=== PATIENT | male | born 1975 | race Caucasian/White ===

== ENCOUNTER → 2022-03-30 | Day surgery (SDC) | payer OTHER ==
[2022-03-28 13:03] VITALS: BMI 25.7
[~2022-03-30] MED LIST: BUPIVACAINE HCL/PF 0.5% (5MG/ML) 10 ML VIAL ONE; DEXAMETHASONE SOD PHOSPHATE 10 MG/1 ML VIAL ONE; DEXAMETHASONE SOD PHOSPHATE 4 MG/1 ML VIAL ONE; FENTANYL CITRATE/PF 50 MCG/ML VIAL ONE; LIDOCAINE HCL 1%, 10 MG/ML (20ML VIAL) ONE; LIDOCAINE HCL/PF 2% SDV 5ML VIAL ONE; MIDAZOLAM HCL 2 MG/2 ML SINGLE DOSE VIAL ONE; ONDANSETRON 4 MG/2 ML VIAL ONE; PROPOFOL 20 ML ONE; ROPIVACAINE HCL 0.5% 30ML VIAL ONE; ceFAZolin SODIUM 1 GM VIAL IVPB ONE; ceFAZolin SODIUM 1 GM VIAL ONE
[2022-03-30 15:28] VITALS: BP 100/63; PULSE 61; RESP 17; TEMP 97.6
== END | disposition home or self-care (01) ==
LOC: JASU-SURG 04:11
PROVIDERS: ATTEND Orthopaedic Surgery
PROC: 0PUM07Z Supplement Right Carpal with Autologous Tissue Substitute, Open Approach (ICD-10-PCS; 2022-03-30)
PROC: 0PBH0ZZ Excision of Right Radius, Open Approach (ICD-10-PCS; 2022-03-30)
PROC: 0PU Upper Bones, Supplement (ICD-10-PCS; 2022-03-30)
PROC: 0PSM04Z Reposition Right Carpal with Internal Fixation Device, Open Approach (ICD-10-PCS; principal; 2022-03-30 09:00)
DX: S62.001A Unspecified fracture of navicular [scaphoid] bone of right wrist, initial encounter for closed fracture (principal); X58.XXXA Exposure to other specified factors, initial encounter; Y93.9 Activity, unspecified; Y92.9 Unspecified place or not applicable; Y99.9 Unspecified external cause status
CPT/HCPCS: 20900; 25440; C1713; 76000-TC-FY; 88304-TC; 88311-TC; J1100